=== PATIENT | female | born 1970 | race Hispanic/Latino ===

== ENCOUNTER 2016-07-23 12:24 | Emergency (ER) | payer BC ==
[2016-07-23 12:25] VITALS: BMI 25.6
[2016-07-23 13:14] VITALS: RESP 18; TEMP 98
--- NOTE | 2016-07-23 15:00 | RAD ---
PROCEDURE: Left Hip and pelvis X-ray Radiographs. HISTORY: pain COMPARISON: None. FINDINGS: BONES: Normal. No fracture. JOINTS: Normal. SOFT TISSUES: Normal. OTHER FINDINGS: None. IMPRESSION: Negative study
[2016-07-23] MEDS ORDERED: Oxycodone/Acetaminophen 5/325 mg Tab PO STA (15:27)
--- NOTE | 2016-07-23 15:44 | ED PDOC ---
Arrival/HPI - General Chief Complaint: Hip Pain Time Seen by Provider: 07/23/16 13:10 Historian: Patient - History of Present Illness Narrative History of Present Illness (Text): 07/23/16 15:38 Patient presents c/o L hip pain after she slipped and fell on the wet floor 2 days ago, reports pain with ambulating and putting weight on affected leg. Is taking exedrine with no relief, and using crutches to ambulate. Also reports of mild pain to the L elbow with ROM, otherwise denies any head injury, LOC, neck pain, back pain, bowel / bladder incontinence, paresthesia, weakness. Has no other complaints. Past Medical History - Provider Review Nursing Documentation Reviewed: Yes - Infectious Disease Hx of Infectious Diseases: None - Tetanus Immunization Tetanus Immunization: Unknown - Reproductive Menopause: No - Cardiac Hx Hypertension: Yes - Gastrointestinal Hx Diverticulitis: Yes - Psychiatric Hx Substance Use: No - Anesthesia Hx Anesthesia: No Hx Anesthesia Reactions: No Hx Malignant Hyperthermia: No Family/Social History - Physician Review Nursing Documentation Reviewed: Yes Family/Social History: No Known Family HX Smoking Status: Heavy Smoker > 10 Cigarettes Daily Hx Alcohol Use: Yes Hx Substance Use: No Allergies/Home Meds Allergies/Adverse Reactions: Allergies NSAIDS (Non-Steroidal Anti-Inflamma Allergy (Verified 11/28/15 18:05) URTICARIA Sulfa (Sulfonamide Antibiotics) Allergy (Verified 07/23/16 13:15) SHORTNESS OF BREATH Home Medications: Home Meds Medication Instructions Recorded Confirmed Hydrochlorothiazide [Microzide] 12.5 mg PO DAILY 11/28/15 07/23/16 Omeprazole 40 mg PO DAILY 11/28/15 07/23/16 amLODIPine [Norvasc] 5 mg PO DAILY 11/28/15 07/23/16 Review of Systems - Review of Systems Constitutional: Normal. absent: Fatigue, Weight Change, Fevers Respiratory: Normal. absent: SOB, Cough Cardiovascular: Normal. absent: Chest Pain, Palpitations Gastrointestinal: Normal. absent: Abdominal Pain, Stool Changes Musculoskeletal: Normal, Arthralgias. absent: Back Pain, Neck Pain Skin: Normal. absent: Rash, Pruritis, Skin Lesions Physical Exam - Physical Exam Narrative Physical Exam (Text): 07/23/16 15:44 GENERAL APPEARANCE: Patient is awake, alert, oriented x 3, in no acute distress. SKIN: Warm, dry; (-) cyanosis. HEAD: (-) swelling and tenderness, with no palpable bony defect. EYES: (-) conjunctival pallor, (-) scleral icterus, (-) nystagmus. ENMT: Mucous membranes moist. (-) Jovel's sign. Nose: (-) tenderness, (-) rhinorrhea. No oral trauma. Pharynx clear. Airway patent: (-) stridor. Full ROM of mandible without pain. NECK: (-) tenderness, (-) stiffness, (-) lymphadenopathy. CHEST AND RESPIRATORY: (-) chest wall tenderness. Lungs: (-) rales, (-) rhonchi, (-) wheezes; breath sounds equal bilaterally. HEART AND CARDIOVASCULAR: (-) irregularity; (-) murmur, (-) gallop. ABDOMEN AND GI: Soft; (-) tenderness. BACK: (-) tenderness. EXTREMITIES: (-) deformity, (+) tenderness to the L hip with ecchymosis, rest of the extremities are non-tender, (-) limitation of motion. NEURO AND PSYCH: GCS=15. Mental status as above. Has full memory of episode; window/distribution clerk: Pupils equal & reactive . EOMI. (-) facial asymmetry. Tongue and uvula midline. Strength 5/5 in all extremities. No gross sensory deficits. DTRs symmetric. Vital Signs Temp Pulse Resp BP Pulse Ox 07/23/16 16:52 102 H 18 138/79 98 07/23/16 13:04 98 F 119 H 18 142/84 99 Medical Decision Making ED Course and Treatment: 07/23/16 15:46 46 yo F c/o L hip and L elbow pain s/p slip and fall at home. XR L hip/pelvis ordered. Given tramadol po for pain. XR L hip / pelvis: (+) fracture of pubic ramus, no dislocation, as read by PA Patient advised that official radiology read of XR is still pending and will call the patient if there is any discrepancy within 24 hours. X-ray results discussed with the patient in great detail. Call placed to ortho occupational safety specialist Dr. Jenkins. Case d/w Dr. Jenkins, who agrees with current plan and follow up, recommends absolutely no weight baring on the affected leg. Patient given a dose of percocet. Case d/w ER MD and agrees with current plan of care and disposition. Based on history, exam and diagnostic results plan will be for outpatient follow up with ortho referral, advised no weight baring at all and to use cructhes as instructed. Patient states she fully agrees with and understands discharge instructions. States that she agrees with the plan and disposition. Verbalized and repeated discharge instructions and plan. I have given the patient opportunity to ask any additional questions. Follow up with ortho referral in 1-2 days without fail. Advised to take medication as prescribed. Return to the emergency room at any time for any new or worsening symptoms. 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 Disposition/Present on Arrival - Present on Arrival Any Indicators Present on Arrival: No History of DVT/PE: No History of Uncontrolled Diabetes: No Urinary Catheter: No History of Decub. Ulcer: No History Surgical Site Infection Following: None - Disposition Have Diagnosis and Disposition been Completed?: Yes Diagnosis: Fracture of pubic ramus Disposition: HOME/ ROUTINE Disposition Time: 16:15 Patient Plan: Discharge Condition: GOOD Discharge Instructions (ExitCare): Pelvic Fracture (ED) Print Language: BULGARIAN Additional Instructions: Thank you for letting us take care of you today. You were treated for fracture of the left pubic ramus. The emergency medical care you received today was directed at your acute symptoms. If you were prescribed any medication, please fill it and take as directed. It may take several days for your symptoms to resolve. Return to the Emergency Department if your symptoms worsen, do not improve, or if you have any other problems. Please contact orthopedic referral and 2 days for re-evaluation and follow up. Bring any paperwork you were given at discharge with you along with any medications you are taking to your follow up visit. Our treatment cannot replace ongoing medical care by a primary care provider (PCP) outside of the emergency department. Thank you for allowing the [facility] team to be part of your care today. Prescriptions: oxyCODONE/Acetaminophen [Percocet 5/325 mg Tab] 1 ea PO TID PRN #12 tab PRN Reason: Pain, Moderate (4-7) Referrals: Brett Machado MD [Primary Care Provider] - Follow up with primary Megan Sommer MD [Staff Provider] - Follow up with primary Forms: WORK NOTE
[2016-07-23 16:52] VITALS: BP 138/79; PULSE 102; O2SAT 98
== END 2016-07-23 17:27 | disposition home or self-care (01) ==
LOC: ED 12:24
DX: S32.592A Other specified fracture of left pubis, initial encounter for closed fracture (principal); W01.0XXA Fall on same level from slipping, tripping and stumbling without subsequent striking against object, initial encounter; Y92.009 Unspecified place in unspecified non-institutional (private) residence as the place of occurrence of the external cause